=== PATIENT | male | born 1965 | race Caucasian/White ===

== ENCOUNTER 2016-12-23 07:15 | Inpatient (IN) | payer SELFPAY ==
[~2016-12-23] VITALS: Ht 188 cm; Wt 84.4 kg
--- NOTE | 2016-12-23 07:43 | PHYS DOC ---
Past Medical History Past Medical History: Other (etoh abuse, drug abuse) Adult General Chief Complaint Chief Complaint: WITHDRAWL HPI HPI Patient is a 51 year old male with history of alcohol abuse who presents with multiple complaints. Patient states he has had chest heaviness especially on the left side of his chest for 1-1/2 weeks. Patient states he has been drinking 1-1/2 pints of hard liquor for the last 1 month approximately, his last drink was 2 days ago. He states yesterday he checked himself in at [facility] for detox. He states he stood up quickly from sitting position and fell face forward and was out for a few seconds. He states this morning he woke up and he still had the chest heaviness and mild left arm pain. Patient describes left arm pain as sharp and worse on movement. Review of Systems Review of Systems Constitutional: Denies fever or chills [] Eyes: Denies change in visual acuity, redness, or eye pain [] HENT: Denies nasal congestion or sore throat [] Respiratory: Denies cough or shortness of breath [] Cardiovascular: chest heaviness and left arm pain GI: Denies abdominal pain, nausea, vomiting, bloody stools or diarrhea [] : Denies dysuria or hematuria [] Musculoskeletal: Denies back pain or joint pain [] Integument: Denies rash or skin lesions [] Neurologic: Denies headache, focal weakness or sensory changes [] Endocrine: Denies polyuria or polydipsia [] Psych:ETOH abuse Current Medications Current Medications Current Medications Medications (Trade) Dose Ordered Sig/Jimena Start Time Stop Time Status Last Admin Dose Admin Aspirin (Nakul Aspirin) 325 mg 1X ONCE 12/23/16 07:45 12/23/16 07:46 DC 12/23/16 07:52 325 MG Clonidine HCl (Catapres) 0.1 mg PRN Q1HR PRN 12/23/16 09:00 UNV Diphenhydramine HCl (Benadryl) 25 mg PRN Q15MIN PRN 12/23/16 09:00 UNV Famotidine (Pepcid) 20 mg 1X ONCE 12/23/16 07:45 12/23/16 07:46 DC 12/23/16 07:54 20 MG Lorazepam (Ativan) 2 mg PRN Q1HR PRN 12/23/16 09:00 UNV Lorazepam 2 mg 2 mg 1X ONCE 12/23/16 07:45 12/23/16 07:46 DC 12/23/16 07:52 2 MG Multivitamins/ Minerals/Folic Acid/Thiamine HCl/ Sodium Chloride (Infuvite Adult/ Iv Sodium Chloride 0.9% 1000ml Bag) 1,011.2 ml @ 1,000 mls/ hr 1X ONCE 12/23/16 08:00 12/23/16 09:00 12/23/16 07:55 1,000 MLS/HR Multivitamins/ Minerals/Thiamine HCl/Folic Acid/ Sodium Chloride (Infuvite Adult/ Iv Sodium Chloride 0.9% 1000ml Bag) 1,011.2 ml @ 100 mls/ hr DAILY 12/23/16 09:00 12/28/16 08:59 UNV Ondansetron HCl (Zofran) 4 mg 1X ONCE 12/23/16 07:45 12/23/16 07:46 DC 12/23/16 07:48 4 MG Ondansetron HCl 4 mg 4 mg PRN Q8HRS PRN 12/23/16 09:00 12/24/16 08:59 UNV Allergies Allergies Allergies Coded Allergies Type Severity Reaction Last Updated Verified Penicillins Allergy Intermediate Unknown 12/23/16 Yes Physical Exam Physical Exam Constitutional: Well developed, well nourished, no acute distress, non-toxic appearance. [] HENT: Normocephalic, atraumatic, bilateral external ears normal, oropharynx moist, no oral exudates, nose normal. [] Eyes: PERRLA, EOMI, conjunctiva normal, no discharge. [] Neck: Normal range of motion, no tenderness, supple, no stridor. [] Cardiovascular:Heart rate regular rhythm, no murmur no gallops no rubs Lungs & Thorax: Bilateral breath sounds clear to auscultation [] Abdomen: Bowel sounds normal, soft, no tenderness, no masses, no pulsatile masses. [] Skin: Warm, dry, no erythema, no rash. [] Back: No tenderness, no CVA tenderness. [] Extremities: No tenderness, no cyanosis, no clubbing, ROM intact, no edema. [] Neurologic: Alert and oriented X 3, normal motor function, normal sensory function, no focal deficits noted. [] Psychologic: Affect normal, judgement normal, mood normal. Has tremors Current Patient Data Vital Signs Vital Signs Date Time Temp Pulse Resp B/P Pulse Ox O2 Delivery O2 Flow Rate FiO2 12/23/16 07:15 98.4 67 17 162/93 98 Room Air 98.4 Lab Values Laboratory Tests Test 12/23/16 07:56 White Blood Count 5.3x10^3/uL (4.0-11.0) Red Blood Count 4.33x10^6/uL (4.30-5.70) Hemoglobin 14.6g/dL (13.0-17.5) Hematocrit 42.6% (39.0-53.0) Mean Corpuscular Volume 98fL (79-100) Mean Corpuscular Hemoglobin 34pg (25-35) Mean Corpuscular Hemoglobin Concent 34g/dL (31-37) Red Cell Distribution Width 15.2% (11.5-14.5) H Platelet Count 162x10^3/uL (140-400) Neutrophils (%) (Auto) 63% (31-73) Lymphocytes (%) (Auto) 27% (24-48) Monocytes (%) (Auto) 8% (0-9) Eosinophils (%) (Auto) 1% (0-3) Basophils (%) (Auto) 1% (0-3) Neutrophils # (Auto) 3.4x10^3uL (1.8-7.7) Lymphocytes # (Auto) 1.4x10^3/uL (1.0-4.8) Monocytes # (Auto) 0.4x10^3/uL (0.0-1.1) Eosinophils # (Auto) 0.1x10^3/uL (0.0-0.7) Basophils # (Auto) 0.0x10^3/uL (0.0-0.2) Sodium Level 140mmol/L (136-145) Potassium Level 3.6mmol/L (3.5-5.1) Chloride Level 101mmol/L (98-107) Carbon Dioxide Level 26mmol/L (21-32) Anion Gap 13 (6-14) Blood Urea Nitrogen 15mg/dL (8-26) Creatinine 0.9mg/dL (0.7-1.3) Estimated GFR (Cockcroft-Gault) 88.3 BUN/Creatinine Ratio 17 (6-20) Glucose Level 98mg/dL (70-99) Calcium Level 9.3mg/dL (8.5-10.1) Magnesium Level 1.4mg/dL (1.8-2.4) L Total Bilirubin 1.6mg/dL (0.2-1.0) H Aspartate Amino Transferase (AST) 58U/L (15-37) H Alanine Aminotransferase (ALT) 49U/L (16-63) Alkaline Phosphatase 60U/L (46-116) Creatine Kinase 252U/L (39-308) Creatine Kinase MB (Mass) 3.6ng/mL (0.0-3.6) Creatine Kinase MB Relative Index 1.4% (0-4) Troponin I Quantitative < 0.017ng/mL (0.000-0.055) JN-Zad-O-Type Natriuretic Peptide 50pg/mL (0-124) Total Protein 6.5g/dL (6.4-8.2) Albumin 3.7g/dL (3.4-5.0) Albumin/Globulin Ratio 1.3 (1.0-1.7) Lipase 154U/L (73-393) Salicylates Level < 2.8mg/dL (2.8-20.0) L Salicylate Last Dose Date Unknown Salicylate Last Dose Time Unknown Acetaminophen Level < 2.0mcg/ml (10-30) L Acetaminophen Last Dose Date Unknown Acetaminophen Last Dose Time Unknown Ethyl Alcohol Level < 10mg/dL (0-10) Laboratory Tests 12/23/16 07:56 Laboratory Tests 12/23/16 07:56 EKG EKG [] Radiology/Procedures Radiology/Procedures []PROCEDURE: PORTABLE CHEST 1V Single view chest History:Chest heaviness . An AP view of the chest is submitted. Comparison: None. Findings: There is no significant infiltrate, pleural effusion, or pneumothorax. The pericardial cardiac silhouette is within normal limits in size. The trachea is in the midline. No acute osseous abnormality is identified. Impression: There is no evidence of acute cardiopulmonary disease. DICTATED and SIGNED BY: DARIELA SANCHEZ MD DATE: 12/23/16 0749 CC: RUT FELIX [employer]; NON,STAFF ~ Course & Med Decision Making Course & Med Decision Making Pertinent Labs and Imaging studies reviewed. (See chart for details) This is a patient with history of alcohol abuse who presents today with left sided chest heaviness and pain to the left arm. He is also complaining of a syncope episode yesterday. He stopped drinking 2 days ago. Vitals on arrival temp 98.4, BP 162/93, HR 67 resp 17 O2 saturations 98% 04:[address] High sinus rate them, inverted T waves noted on EKG QRS interval 110, heart rate 77, no STEMI. Chest x-ray Interpreted by radiologist was negative for any acute findings. CT of the head interpreted by radiologist is negative for any acute findings CBC with no acute findings, CMP with AST for 58, Bilirubin 1.6, Mag 1.4, normal troponin and CKMB 08:[address] To who accepted patient for admission Consult place for cardiology Patient's nurse states they removed an armband from patient's wrist dated yesterday belonging to [facility]. Patient states he was evaluted at [facility] yesterday after falling. Dragon Disclaimer Dragon Disclaimer This electronic medical record was generated, in whole or in part, using a voice recognition dictation system. Departure Departure Impression: Primary Impression: Alcohol withdrawal Additional Impressions: ETOH abuse Acute electrocardiogram changes Syncope Chest pain of uncertain etiology Disposition: ADMITTED INPATIENT Referrals: NON,STAFF (PCP) Problem Qualifiers Primary Impression: Alcohol withdrawal Complication of substance-induced condition: uncomplicated Qualified Code: F10.230 - Alcohol dependence with withdrawal, uncomplicated Additional Impressions: Syncope Syncope type: unspecified Qualified Code: R55 - Syncope and collapse RUT FELIX APRN Dec 23, 2016 07:43
[2016-12-23] MEDS ORDERED: LORAZEPAM 2 MG/ML VIAL IV ONE (07:45)
[2016-12-23] MEDS ORDERED: FAMOTIDINE 20 MG/2 ML VIAL IVP ONE (07:45)
[2016-12-23] MEDS ORDERED: ASPIRIN 325 MG TABLET PO ONE (07:45)
[2016-12-23] MEDS ORDERED: ONDANSETRON PF 4 MG/2 ML VIAL. IV ONE (07:45)
--- NOTE | 2016-12-23 07:52 | RAD ---
Single view chest History:Chest heaviness . An AP view of the chest is submitted. Comparison: None. Findings: There is no significant infiltrate, pleural effusion, or pneumothorax. The pericardial cardiac silhouette is within normal limits in size. The trachea is in the midline. No acute osseous abnormality is identified. Impression: There is no evidence of acute cardiopulmonary disease.
[2016-12-23] MEDS ORDERED: MVI, ADULT NO.4 WITH VIT K 10 ML, FOLIC ACID 1 MG, THIAMINE 100 MG in IV NORMAL SALINE ... IV ONE ×4 (08:00)
--- NOTE | 2016-12-23 08:16 | RAD ---
Head CT without contrast History:Syncope, detox EtOH Technique: Noncontrast CT imaging was acquired of the head.[facility] Compliance Statement: One or more of the following individualized dose reduction techniques were utilized for this examination: 1. Automated exposure control 2. Adjustment of the mA and/or kV according to patient size 3. Use of iterative reconstruction technique Comparison: None Findings: The ventricles, sulci, and cisterns are within normal limits in size and configuration. There is no significant intra-axial mass-effect, midline shift, or abnormal extra-axial fluid collection. There is no evidence of acute parenchymal or extraaxial hemorrhage. The visualized paranasal sinuses and mastoid air cells are aerated. No significant osseous abnormality is identified. Impression: There is no evidence of an acute intracranial abnormality.
[2016-12-23 08:21] LABS: CALCIUM 9.3 mg/dL (8.5-10.1); CREATININE 0.9 mg/dL (0.7-1.3); GFR 88.3; POTASSIUM 3.6 mmol/L (3.5-5.1)
[2016-12-23 08:22] LABS: BASO % 1 % (0-3); EOS % 1 % (0-3); HEMATOCRIT 42.6 % (39.0-53.0); HEMOGLOBIN 14.6 g/dL (13.0-17.5); LYMPH # 1.4 x10^3/uL (1.0-4.8); LYMPH % 27 % (24-48); MEAN CORPUSCULAR HEMOGLOBIN 34 pg (25-35); MEAN CORPUSCULAR HGB CONC 34 g/dL (31-37); MEAN CORPUSCULAR VOLUME 98 fL (79-100); MONO % 8 % (0-9); NEUT % 63 % (31-73); PLATELET COUNT 162 x10^3/uL (140-400); RED BLOOD COUNT 4.33 x10^6/uL (4.30-5.70); RED CELL DISTRIBUTION WIDTH 15.2 % (11.5-14.5); WHITE BLOOD COUNT 5.3 x10^3/uL (4.0-11.0)
[2016-12-23 08:25] LABS: ETHANOL < 10 mg/dL (0-10)
[2016-12-23 08:30] LABS: ALBUMIN 3.7 g/dL (3.4-5.0); ALBUMIN/GLOBULIN RATIO 1.3 (1.0-1.7); MAGNESIUM 1.4 mg/dL (1.8-2.4); PROTHROMBIN TIME PATIENT 12.8 SEC (11.7-14.0); TOTAL BILIRUBIN 1.6 mg/dL (0.2-1.0); TOTAL PROTEIN 6.5 g/dL (6.4-8.2)
[2016-12-23 08:36] LABS: CKMB INDEX 1.4 % (0-4); CKMB MASS 3.6 ng/mL (0.0-3.6)
[2016-12-23] MEDS ORDERED: ONDANSETRON PF 4 MG/2 ML VIAL. IV PRN (09:00)
[2016-12-23] MEDS ORDERED: CLONIDINE HCL 0.1 MG TABLET PO PRN (09:00)
[2016-12-23] MEDS ORDERED: DIPHENHYDRAMINE 50 MG/ML VIAL IVP PRN (09:00)
--- NOTE | 2016-12-23 09:30 | ACF ---
Admit Criteria Forms Admit Criteria Forms Admit Criteria Forms SUBSTANCE ABUSE Clinical Indications for Admission to Inpatient Care (Place 'X' for any and all applicable criteria): Admission is indicated due to ANY ONE of the following(1)(2)(3)(4)(5): [ ]I. Delirium due to alcohol or sedative A withdrawal B ( Also use Delirium Criteria as appropriate)1,6,7 [ ]II. Alcohol or sedative withdrawal with high-risk indicator as manifested by ALL of the following1,3,6,7 [ ]a) Signs of withdrawal as indicated by ANY ONE of the following: [ ]i) Heart rate greater than 100 beats per minute [ ]ii) Nausea or vomiting [ ]iii) Other physical signs of alcohol or sedative withdrawal [ ]iv) Tremor [ ](v) Increased perspiration [ ]b) Elevated risk due to a historical or comorbid factor as indicated by ANY ONE of the following: [ ]i) History of delirium due to alcohol or sedative withdrawal [ ]ii) History of repetitive seizures due to alcohol or sedative withdrawal C [ ]iii) Intrinsic seizure disorder (epilepsy) [ ]iv) [ ]v) Comorbid medical condition that can be dangerously destabilized by alcohol or sedative withdrawal (eg, severe cardiac disease) [ ]III. Severe alcohol or sedative withdrawal that is unmanageable at lower level of care, as manifested by ALL of the following1,3,6,7 [ ]a) Marked signs of withdrawal as indicated by ANY ONE of the following: [ ]i) Heart rate greater than 120 beats per minute [ ]ii) Vomiting [ ]iii) Grossly visible tremor [ ]iv) Profuse perspiration [ ]v) Temperature greater than 38.3 degrees C (101 degrees F) [ ]vi) Other marked physical signs of alcohol or sedative withdrawal [ ]b) Signs of withdrawal which require inpatient treatment as indicated by ANY ONE of the following: [ ]i) Inadequate response to pharmacotherapy in emergency department or other appropriate lower level of care [ ]ii) Lower level of care not feasible or appropriate (eg, unavailable or inappropriate to patient condition or treatment history) [ ]IV. Severely complicated opioid withdrawal that requires [id number] care as manifested by ALL of the following 1,4,7,11 [ ]a) Vomiting or diarrhea due to opioid withdrawal [ ]b) Marked dehydration or electrolyte abnormality that cannot be corrected (to near normal) in an emergency department or other ambulatory setting (eg, serum K<2.5 mEq/L , serum Na <130 mEq/L [ ]V. Acute toxicity or instability from substance use requiring inpatient care (eg, altered mental status, respiratory depression) that has had inadequate response to, or is judged inappropriate for, treatment at lower level of care (eg, emergency department, observation care) [X]. Other inpatient medical or psychiatric care is needed due to risk or comorbidity as indicated by ALL of the following(18): [X]a) Treatment is needed because of patient risk due to ANY ONE of the following: [X]i) Medical condition (eg, severe cardiac disease) that requires 24-hour monitoring and treatment due to danger of destabilization by alcohol or sedative withdrawal is present [ ]ii) Imminent danger to self is present due to ANY ONE of the following(19)(20)(21): [ ]1) Imminent risk for recurrence of Suicide attempt or act of serious Harm to self is present as indicated by ALL of the following: [ ]A. There has been very recent Suicide attempt or deliberate act of serious Harm to self. [ ]B. There has not been Sufficient relief of the factors that precipitated the attempt or act. [ ]2) Current plan for suicide or serious Harm to self is present. [ ]3) Command auditory hallucinations for suicide or serious Harm to self are present. [ ]4) Patient has persistent Thoughts of suicide or serious Harm to self that cannot be adequately monitored at lower level of care due to ANY ONE of the following[E]: [ ]A. Insufficient behavioral care is available to meet patient needs (such as required provider or lower level facility is not available). [ ]B. Patient characteristics such as high impulsivity or unreliability are present. [ ]C. Environment does not support recovery. [ ]D. Ready access to lethal means [ ]iii) Imminent danger to others is present due to ANY ONE of the following(19)(23)(24): [ ]1) Imminent risk for recurrence of attempt to seriously Harm another is present as indicated by ALL of the following: [ ]A. There has been very recent attempt to seriously Harm another. [ ]B. There has not been Sufficient relief of factors that precipitated the attempt or act. [ ]2) Current plan for homicide or serious Harm to another is present. [ ]3) Command auditory hallucinations or paranoid delusions contributing to risk for homicide or serious Harm to another are present. [ ]4) Patient has persistent thoughts of homicide or serious Harm to another that cannot be adequately monitored at lower level of care because of ANY ONE of the following[E]: [ ]A. Insufficient behavioral care is available to meet patient needs (such as required provider or lower level facility is not available). [ ]B. High impulsivity or unreliability is present. [ ]C. Environment does not support recovery. [ ]D. Ready access to lethal means [ ]iv) Severe dysfunction in daily living related to substance use disorder as indicated by ANY ONE of the following(33): [ ]a) Extreme deterioration in social interactions (eg , threatening behaviors with little or no provocation) [ ]b) Complete withdrawal from all social interactions [ ]c) Complete neglect of self-care with associated impairment in physical status [ ]d) Extreme disruption in vegetative function (eg, life-sustaining functions such as eating) [ ]e) Complete inability to maintain any appropriate aspect of personal responsibility in any adult roles (eg, occupational, parental ) [ ]v) Other emotional, behavioral, or cognitive symptoms of sufficient severity to preclude ability to engage in recovery without 24-hour monitoring and treatment are present. [ ]vi) Patient requires monitoring due to substance use in combination with medical, psychiatric, or environmental factors that prevent adequate management at lower level of care as indicated by ALL of the following: [ ]1) Significant substance use effects, medical conditions, or psychiatric comorbidities are present as indicated by ANY ONE of the following [ ]A. Substance toxicity or withdrawal requires medical monitoring. [ ]B. Medical comorbidity requires medical monitoring for destabilization due to alcohol or sedative withdrawal. [ ]C. Emotional, behavioral, or cognitive symptoms of sufficient severity to limit or preclude ability to engage in treatment are present. [ ]2) Conditions, barriers, or environmental factors preventing treatment at lower level of care are present as indicated by ANY ONE of the following: [ ]A. Psychiatric comorbidity or opposition to treatment requires 24-hour setting to ensure adherence with medical treatment or adequate motivating interventions. [ ]B. Severe behavioral problems (eg, escalating relapse behaviors, acute psychiatric or substance use crisis, inability to recognize signs and symptoms of relapse ) require 24-hour setting for relapse prevention.[F] [ ]C. Living environment outside of 24-hour setting prevents recovery (eg, abuse, victimization, patient inability to cope). [ ]b Treatment situation and needs are appropriate for inpatient level ( instead of using lower level of care) as indicated by ANY ONE of the following( 25)(26)(27): [ ]i) Patient is unwilling to participate voluntarily and requires treatment (eg, legal commitment) in involuntary unit.(23) [ ]ii) Voluntary treatment at lower level is not feasible (eg, lower level care unavailable or inappropriate for patient condition). [ ]iii) Physical restraint, seclusion, or other involuntary control is needed (eg, actively violent patient for whom treatment in an involuntary unit is deemed necessary in accord with applicable medical and legal criteria).(23) [ ]iv) Wxvqse-uhy-zjzif medical or nursing care to address symptoms and initiate interventions is required; specific need is identified. Extended stay beyond goal length of stay may be needed for: [ ]a) Onset of delirium [ ]b) Recurrent seizures [ ]c) Persistent severe alcohol or sedative withdrawal [ ]d) Persistent dangerous behavior The original [employer] content created by [employer] has been revised. The portions of the content which have been revised are identified through the use of italic text or in bold, and [facility] [employer] has neither reviewed nor approved the modified material. All other unmodified content is copyright [employer]. Please see references footnoted in the original [employer] edition 2015 RODRIGUEZ CLARK Dec 23, 2016 09:30
--- NOTE | 2016-12-23 15:31 | CONS ---
DATE OF CONSULTATION: 12/23/2016 REASON FOR CONSULTATION: Chest pain. HISTORY OF PRESENT ILLNESS: The patient is a 51-year-old alcoholic male who presents to the hospital in the setting of a diffuse musculoskeletal pain. He is worried about withdrawl. He was recently seen apparently for a fall less than 24 hours ago at [facility]. Records from the outside hospital are not available. In speaking with the patient, he denies any anginal symptoms. He has reproducible chest pain. He denies any palpitations. Syncope yesterday may have been in the setting of alcohol abuse. PAST MEDICAL HISTORY: 1. Alcohol abuse. 2. Syncope. 3. Chest pain, likely musculoskeletal in nature. SOCIAL HISTORY: The patient denies any illicit drug use, but he is an alcoholic as noted above and drinks several alcoholic beverages a day. FAMILY HISTORY: No early atherosclerotic heart disease or sudden cardiac . ALLERGIES: TO PENICILLIN. CURRENT CARDIAC MEDICATIONS: None at home. PHYSICAL EXAMINATION: VITAL SIGNS: Afebrile, heart rate 67, blood pressure 146/82, pulse ox 98% on room air. GENERAL: He is alert and oriented, in no acute distress. HEAD AND NECK: Unremarkable. CARDIAC: Regular rate and rhythm without any murmurs, rubs or gallops. ABDOMEN: Soft, nontender, nondistended. LUNGS: Clear to auscultation bilaterally. EXTREMITIES: No clubbing, cyanosis or edema. NEUROLOGIC: No focal deficits. MUSCULOSKELETAL: Tenderness to palpation diffusely. DIAGNOSTIC STUDIES: 1. Hemoglobin, platelets and creatinine within normal limits. Initial cardiac enzymes are negative x 1. 2. EKG is unremarkable. 3. Chest x-ray and head CT are also unremarkable. IMPRESSION: Noncardiac chest pain in the setting of history of alcohol abuse. RECOMMENDATIONS: No further cardiac testing necessary at this time. Supportive care from a cardiac standpoint. Monitor for alcohol withdrawal per primary service. Please call with questions. Thank you for this consultation. BRITTANIE RODRIGUEZ MD DR: CATALINO/nessa JOB#: [id number] / [id number] SENTHIL
[2016-12-23 15:34] LABS: BILIRUBIN,URINE NEGATIVE (NEG); GLUCOSE,URINE NEGATIVE (NEG); NITRITE,URINE NEGATIVE (NEG); PROTEIN,URINE NEGATIVE (NEG-TRACE)
[2016-12-23 15:39] LABS: BARBITURATES NEG (NEG); BENZODIAZEPINES NEG (NEG); CANNABINOIDS NEG (NEG); COCAINE NEG (NEG); METHADONE NEG (NEG); OPIATES NEG (NEG); PHENCYCLIDINE NEG (NEG)
[2016-12-23 15:44] LABS: RBC,URINE 0 /HPF (0-2)
[2016-12-23 15:45] LABS: BACTERIA,URINE 0 /HPF (0-FEW)
[2016-12-23 15:51] LABS: ETHANOL, URINE NEG (NEG)
[2016-12-23 17:35] VITALS: BP_SYST 165; BP_DIAS 72; BP_DIAS 90; BP_DIAS 92
[2016-12-23] MEDS: LORAZEPAM 2 MG/ML VIAL IV PRN ×2 (18:27→19:43)
--- NOTE | 2016-12-23 18:52 | EKG ---
[facility] [address] [place] [address] Test Date: 2016-12-23 Test Time: 07:16:24 Pat Name: SHONA MARTINEZ Department: Room: 252 1 Gender: M Basketball Assembler: : 1965 Requested By: RUT FELIX Order Number: [id number] Reading MD: Lima Santillan Measurements Intervals [place] Rate: 66 P: 34 MO: 132 QRS: -39 QRSD: 94 T: 20 QT: 410 QTc: 432 Interpretive Statements SINUS RHYTHM ABNORMAL LEFT AXIS DEVIATION QRS(T) CONTOUR ABNORMALITY CONSIDER ANTEROLATERAL MYOCARDIAL DAMAGE ABNORMAL ECG RI6.01 No previous ECG available for comparison Electronically Signed On 12-24-2016 19:06:59 DETONATOR ASSEMBLER by Lima Santillan
[2016-12-23] MEDS ORDERED: no home (18:59)
[2016-12-23 19:00] VITALS: BP 151/88
[2016-12-23 23:27] VITALS: BP 133/93
[2016-12-24 03:00] VITALS: BP 149/86
--- NOTE | 2016-12-24 05:30 | HP ---
ADMIT DATE: 12/23/2016 CHIEF COMPLAINT: Alcohol withdrawal. HISTORY OF PRESENT ILLNESS: The patient is a pleasant 51-year-old male who drinks regularly. He came in complaining of alcohol withdrawal. He has got some associated chest tightness that has been occurring off and on for a couple of weeks. I discussed the case with the ER physician. We are going to admit the patient and consult Cardiology and put him on alcohol withdrawal protocol. PAST MEDICAL HISTORY: Alcoholism and drug abuse. ALLERGIES: PENICILLIN. FAMILY HISTORY: Coronary artery disease. SOCIAL HISTORY: He drinks, he smokes and uses drugs. MEDICATIONS: Reviewed, please refer to the MRAD. REVIEW OF SYSTEMS: GENERAL: No history of weight change, weakness or fevers. SKIN: No bruising, hair changes or rashes. EYES: No blurred, double or loss of vision. NOSE AND THROAT: No history of nosebleeds, hoarseness or sore throat. HEART: He complains of chest pain. LUNGS: Denies cough, hemoptysis, wheezing or shortness of breath. GASTROINTESTINAL: Denies changes in appetite, nausea, vomiting, diarrhea or constipation. GENITOURINARY: No history of frequency, urgency, hesitancy or nocturia. NEUROLOGIC: Denies history of numbness, tingling, tremor or weakness. PSYCHIATRIC: No history of panic, anxiety or depression. ENDOCRINE: No history of heat or cold intolerance, polyuria or polydipsia. EXTREMITIES: Denies muscle weakness, joint pain, pain on walking or stiffness. PHYSICAL EXAMINATION: VITAL SIGNS: Temperature afebrile, pulse 97, respirations 18, blood pressure 162/92. GENERAL: He is alert. He is sleeping. He awakens. HEART: Normal S1, S2. LUNGS: Clear. ABDOMEN: Soft, positive bowel sounds. EXTREMITIES: Trace edema. SKIN: No rashes. PSYCHIATRIC: He is depressed. VASCULAR: Good capillary extremities. PSYCHIATRIC: He is stable. VASCULAR: Good capillary refill. ENDOCRINE: No thyromegaly. LYMPHATICS: No cervical nodes. HEMATOPOIETIC: No bruising. LABORATORY DATA: CT of the head is negative. Chest x-ray negative. Hematology within normal limits. Electrolytes normal. Troponin is 0. Drug screen negative. INR 1.0. ASSESSMENT AND PLAN: Alcohol withdrawal and chest pain. The patient has been admitted. We will place him on alcohol withdrawal protocol, consult Cardiology, cardiac monitoring, serial enzymes, serial EKGs. DONNA YIP DO DR: MARISA/nessa JOB#: [id number] / [id number]
[2016-12-24 05:57] LABS: BASO % 1 % (0-3); EOS % 1 % (0-3); HEMATOCRIT 45.1 % (39.0-53.0); HEMOGLOBIN 15.1 g/dL (13.0-17.5); LYMPH # 1.2 x10^3/uL (1.0-4.8); LYMPH % 22 % (24-48); MEAN CORPUSCULAR HEMOGLOBIN 34 pg (25-35); MEAN CORPUSCULAR HGB CONC 34 g/dL (31-37); MEAN CORPUSCULAR VOLUME 100 fL (79-100); MONO % 5 % (0-9); NEUT % 70 % (31-73); PLATELET COUNT 139 x10^3/uL (140-400); RED BLOOD COUNT 4.51 x10^6/uL (4.30-5.70); RED CELL DISTRIBUTION WIDTH 15.6 % (11.5-14.5); WHITE BLOOD COUNT 5.6 x10^3/uL (4.0-11.0)
[2016-12-24 06:21] LABS: GFR 78.2; POTASSIUM 3.6 mmol/L (3.5-5.1)
[2016-12-24 07:30] VITALS: BP 139/93
[2016-12-24] MEDS: MVI, ADULT NO.4 WITH VIT K 10 ML, THIAMINE 100 MG, FOLIC ACID 1 MG in IV NORMAL SALINE ... IV SCH ×4 (09:44)
[2016-12-24] MEDS: LORAZEPAM 2 MG/ML VIAL IV PRN ×3 (09:45→20:48)
[2016-12-24 11:00] VITALS: BP 136/89
[2016-12-24 14:20] VITALS: BP 126/77
--- NOTE | 2016-12-24 15:06 | PDOC ---
PROGRESS NOTES Chief Complaint Chief Complaint Alcohol withdrawal and Chest pain.MSK plan iv Ativan Multivitamins fall precautions cbc/bmp PT/OT Vitals Vitals Vital Signs Date Time Temp Pulse Resp B/P Pulse Ox O2 Delivery O2 Flow Rate FiO2 12/24/16 14:20 98.7 64 16 126/77 93 Room Air 98.7 Physical Exam General: Alert, Oriented X3 Heart: Normal S1, Normal S2 Lungs: Clear Abdomen: Soft Extremities: No clubbing Labs LABS Laboratory Tests Test 12/23/16 15:20 12/23/16 20:00 12/24/16 05:00 Urine Collection Type Unknown Urine Color Yellow Urine Clarity Clear Urine pH 6.0 Urine Specific [place] 1.015 Urine Protein Negativemg/dL (NEG-TRACE) Urine Glucose (UA) Negativemg/dL (NEG) Urine Ketones (Stick) 40mg/dL (NEG) Urine Blood Negative (NEG) Urine Nitrite Negative (NEG) Urine Bilirubin Negative (NEG) Urine Urobilinogen Dipstick 1.0mg/dL (0.2 mg/dL) Urine Leukocyte Esterase Negative (NEG) Urine RBC 0/HPF (0-2) Urine WBC 1-4/HPF (0-4) Urine Bacteria 0/HPF (0-FEW) Urine Mucus Slight/LPF Urine Opiates Screen Neg (NEG) Urine Methadone Screen Neg (NEG) Urine Barbiturates Neg (NEG) Urine Phencyclidine Screen Neg (NEG) Urine Amphetamine/Methamphetamine Neg (NEG) Urine Benzodiazepines Screen Neg (NEG) Urine Cocaine Screen Neg (NEG) Urine Cannabinoids Screen Neg (NEG) Urine Ethyl Alcohol Neg (NEG) Troponin I Quantitative < 0.017ng/mL (0.000-0.055) White Blood Count 5.6x10^3/uL (4.0-11.0) Red Blood Count 4.51x10^6/uL (4.30-5.70) Hemoglobin 15.1g/dL (13.0-17.5) Hematocrit 45.1% (39.0-53.0) Mean Corpuscular Volume 100fL (79-100) Mean Corpuscular Hemoglobin 34pg (25-35) Mean Corpuscular Hemoglobin Concent 34g/dL (31-37) Red Cell Distribution Width 15.6% (11.5-14.5) Platelet Count 139x10^3/uL (140-400) Neutrophils (%) (Auto) 70% (31-73) Lymphocytes (%) (Auto) 22% (24-48) Monocytes (%) (Auto) 5% (0-9) Eosinophils (%) (Auto) 1% (0-3) Basophils (%) (Auto) 1% (0-3) Neutrophils # (Auto) 3.9x10^3uL (1.8-7.7) Lymphocytes # (Auto) 1.2x10^3/uL (1.0-4.8) Monocytes # (Auto) 0.3x10^3/uL (0.0-1.1) Eosinophils # (Auto) 0.1x10^3/uL (0.0-0.7) Basophils # (Auto) 0.0x10^3/uL (0.0-0.2) Sodium Level 138mmol/L (136-145) Potassium Level 3.6mmol/L (3.5-5.1) Chloride Level 101mmol/L (98-107) Carbon Dioxide Level 27mmol/L (21-32) Anion Gap 10 (6-14) Blood Urea Nitrogen 15mg/dL (8-26) Creatinine 1.0mg/dL (0.7-1.3) Estimated GFR (Cockcroft-Gault) 78.2 Glucose Level 138mg/dL (70-99) Calcium Level 9.0mg/dL (8.5-10.1) Assessment and Plan Assessmemt and Plan Problems Medical Problems: (1) Acute electrocardiogram changes Status: Acute (2) Alcohol withdrawal Status: Acute (3) Chest pain of uncertain etiology Status: Acute (4) EKG abnormality Status: Acute (5) ETOH abuse Status: Acute (6) Syncope Status: Acute Problems: Comment Review of Relevant I have reviewed the following items mally (where applicable) has been applied. Labs Laboratory Tests Test 12/23/16 07:56 12/23/16 14:48 12/23/16 15:20 12/23/16 20:00 White Blood Count 5.3x10^3/uL (4.0-11.0) Red Blood Count 4.33x10^6/uL (4.30-5.70) Hemoglobin 14.6g/dL (13.0-17.5) Hematocrit 42.6% (39.0-53.0) Mean Corpuscular Volume 98fL (79-100) Mean Corpuscular Hemoglobin 34pg (25-35) Mean Corpuscular Hemoglobin Concent 34g/dL (31-37) Red Cell Distribution Width 15.2% (11.5-14.5) Platelet Count 162x10^3/uL (140-400) Neutrophils (%) (Auto) 63% (31-73) Lymphocytes (%) (Auto) 27% (24-48) Monocytes (%) (Auto) 8% (0-9) Eosinophils (%) (Auto) 1% (0-3) Basophils (%) (Auto) 1% (0-3) Neutrophils # (Auto) 3.4x10^3uL (1.8-7.7) Lymphocytes # (Auto) 1.4x10^3/uL (1.0-4.8) Monocytes # (Auto) 0.4x10^3/uL (0.0-1.1) Eosinophils # (Auto) 0.1x10^3/uL (0.0-0.7) Basophils # (Auto) 0.0x10^3/uL (0.0-0.2) Prothrombin Time 12.8SEC (11.7-14.0) Prothromb Time International Ratio 1.0 (0.8-1.1) Sodium Level 140mmol/L (136-145) Potassium Level 3.6mmol/L (3.5-5.1) Chloride Level 101mmol/L (98-107) Carbon Dioxide Level 26mmol/L (21-32) Anion Gap 13 (6-14) Blood Urea Nitrogen 15mg/dL (8-26) Creatinine 0.9mg/dL (0.7-1.3) Estimated GFR (Cockcroft-Gault) 88.3 BUN/Creatinine Ratio 17 (6-20) Glucose Level 98mg/dL (70-99) Calcium Level 9.3mg/dL (8.5-10.1) Magnesium Level 1.4mg/dL (1.8-2.4) Total Bilirubin 1.6mg/dL (0.2-1.0) Aspartate Amino Transf (AST/SGOT) 58U/L (15-37) Alanine Aminotransferase (ALT/SGPT) 49U/L (16-63) Alkaline Phosphatase 60U/L (46-116) Creatine Kinase 252U/L (39-308) Creatine Kinase MB (Mass) 3.6ng/mL (0.0-3.6) Creatine Kinase MB Relative Index 1.4% (0-4) Troponin I Quantitative < 0.017ng/mL (0.000-0.055) < 0.017ng/mL (0.000-0.055) < 0.017ng/mL (0.000-0.055) KK-Paf-X-Type Natriuretic Peptide 50pg/mL (0-124) Total Protein 6.5g/dL (6.4-8.2) Albumin 3.7g/dL (3.4-5.0) Albumin/Globulin Ratio 1.3 (1.0-1.7) Lipase 154U/L (73-393) Salicylates Level < 2.8mg/dL (2.8-20.0) Salicylate Last Dose Date Unknown Salicylate Last Dose Time Unknown Acetaminophen Level < 2.0mcg/ml (10-30) Acetaminophen Last Dose Date Unknown Acetaminophen Last Dose Time Unknown Ethyl Alcohol Level < 10mg/dL (0-10) Urine Collection Type Unknown Urine Color Yellow Urine Clarity Clear Urine pH 6.0 Urine Specific [place] 1.015 Urine Protein Negativemg/dL (NEG-TRACE) Urine Glucose (UA) Negativemg/dL (NEG) Urine Ketones (Stick) 40mg/dL (NEG) Urine Blood Negative (NEG) Urine Nitrite Negative (NEG) Urine Bilirubin Negative (NEG) Urine Urobilinogen Dipstick 1.0mg/dL (0.2 mg/dL) Urine Leukocyte Esterase Negative (NEG) Urine RBC 0/HPF (0-2) Urine WBC 1-4/HPF (0-4) Urine Bacteria 0/HPF (0-FEW) Urine Mucus Slight/LPF Urine Opiates Screen Neg (NEG) Urine Methadone Screen Neg (NEG) Urine Barbiturates Neg (NEG) Urine Phencyclidine Screen Neg (NEG) Urine Amphetamine/Methamphetamine Neg (NEG) Urine Benzodiazepines Screen Neg (NEG) Urine Cocaine Screen Neg (NEG) Urine Cannabinoids Screen Neg (NEG) Urine Ethyl Alcohol Neg (NEG) Test 12/24/16 05:00 White Blood Count 5.6x10^3/uL (4.0-11.0) Red Blood Count 4.51x10^6/uL (4.30-5.70) Hemoglobin 15.1g/dL (13.0-17.5) Hematocrit 45.1% (39.0-53.0) Mean Corpuscular Volume 100fL (79-100) Mean Corpuscular Hemoglobin 34pg (25-35) Mean Corpuscular Hemoglobin Concent 34g/dL (31-37) Red Cell Distribution Width 15.6% (11.5-14.5) Platelet Count 139x10^3/uL (140-400) Neutrophils (%) (Auto) 70% (31-73) Lymphocytes (%) (Auto) 22% (24-48) Monocytes (%) (Auto) 5% (0-9) Eosinophils (%) (Auto) 1% (0-3) Basophils (%) (Auto) 1% (0-3) Neutrophils # (Auto) 3.9x10^3uL (1.8-7.7) Lymphocytes # (Auto) 1.2x10^3/uL (1.0-4.8) Monocytes # (Auto) 0.3x10^3/uL (0.0-1.1) Eosinophils # (Auto) 0.1x10^3/uL (0.0-0.7) Basophils # (Auto) 0.0x10^3/uL (0.0-0.2) Sodium Level 138mmol/L (136-145) Potassium Level 3.6mmol/L (3.5-5.1) Chloride Level 101mmol/L (98-107) Carbon Dioxide Level 27mmol/L (21-32) Anion Gap 10 (6-14) Blood Urea Nitrogen 15mg/dL (8-26) Creatinine 1.0mg/dL (0.7-1.3) Estimated GFR (Cockcroft-Gault) 78.2 Glucose Level 138mg/dL (70-99) Calcium Level 9.0mg/dL (8.5-10.1) Laboratory Tests Test 12/23/16 15:20 12/23/16 20:00 12/24/16 05:00 Urine Collection Type Unknown Urine Color Yellow Urine Clarity Clear Urine pH 6.0 Urine Specific [place] 1.015 Urine Protein Negativemg/dL (NEG-TRACE) Urine Glucose (UA) Negativemg/dL (NEG) Urine Ketones (Stick) 40mg/dL (NEG) Urine Blood Negative (NEG) Urine Nitrite Negative (NEG) Urine Bilirubin Negative (NEG) Urine Urobilinogen Dipstick 1.0mg/dL (0.2 mg/dL) Urine Leukocyte Esterase Negative (NEG) Urine RBC 0/HPF (0-2) Urine WBC 1-4/HPF (0-4) Urine Bacteria 0/HPF (0-FEW) Urine Mucus Slight/LPF Urine Opiates Screen Neg (NEG) Urine Methadone Screen Neg (NEG) Urine Barbiturates Neg (NEG) Urine Phencyclidine Screen Neg (NEG) Urine Amphetamine/Methamphetamine Neg (NEG) Urine Benzodiazepines Screen Neg (NEG) Urine Cocaine Screen Neg (NEG) Urine Cannabinoids Screen Neg (NEG) Urine Ethyl Alcohol Neg (NEG) Troponin I Quantitative < 0.017ng/mL (0.000-0.055) White Blood Count 5.6x10^3/uL (4.0-11.0) Red Blood Count 4.51x10^6/uL (4.30-5.70) Hemoglobin 15.1g/dL (13.0-17.5) Hematocrit 45.1% (39.0-53.0) Mean Corpuscular Volume 100fL (79-100) Mean Corpuscular Hemoglobin 34pg (25-35) Mean Corpuscular Hemoglobin Concent 34g/dL (31-37) Red Cell Distribution Width 15.6% (11.5-14.5) Platelet Count 139x10^3/uL (140-400) Neutrophils (%) (Auto) 70% (31-73) Lymphocytes (%) (Auto) 22% (24-48) Monocytes (%) (Auto) 5% (0-9) Eosinophils (%) (Auto) 1% (0-3) Basophils (%) (Auto) 1% (0-3) Neutrophils # (Auto) 3.9x10^3uL (1.8-7.7) Lymphocytes # (Auto) 1.2x10^3/uL (1.0-4.8) Monocytes # (Auto) 0.3x10^3/uL (0.0-1.1) Eosinophils # (Auto) 0.1x10^3/uL (0.0-0.7) Basophils # (Auto) 0.0x10^3/uL (0.0-0.2) Sodium Level 138mmol/L (136-145) Potassium Level 3.6mmol/L (3.5-5.1) Chloride Level 101mmol/L (98-107) Carbon Dioxide Level 27mmol/L (21-32) Anion Gap 10 (6-14) Blood Urea Nitrogen 15mg/dL (8-26) Creatinine 1.0mg/dL (0.7-1.3) Estimated GFR (Cockcroft-Gault) 78.2 Glucose Level 138mg/dL (70-99) Calcium Level 9.0mg/dL (8.5-10.1) Medications Current Medications Aspirin (Nakul Aspirin) 325 mg 1X ONCE PO Last administered on 12/23/16 07:52 ; Start 12/23/16 at 07:45; Stop 12/23/16 at 07:46; Status DC Famotidine (Pepcid) 20 mg 1X ONCE IVP Last administered on 12/23/16 07:54; Start 12/23/16 at 07:45; Stop 12/23/16 at 07:46; Status DC Ondansetron HCl (Zofran) 4 mg 1X ONCE IV Last administered on 12/23/16 07:48 ; Start 12/23/16 at 07:45; Stop 12/23/16 at 07:46; Status DC Lorazepam 2 mg 2 mg 1X ONCE IV Last administered on 12/23/16 07:52; Start 09/28 at 07:45; Stop 12/23/16 at 07:46; Status DC Multivitamins/ Minerals/Folic Acid/Thiamine HCl/ Sodium Chloride (Infuvite Adult / Iv Sodium Chloride 0.9% 1000ml Bag) 1,011.2 ml @ 1,000 mls/ hr 1X ONCE IV Last administered on 12/23/16 07:55; Start 12/23/16 at 08:00; Stop 12/23/16 at 09:00; Status DC Ondansetron HCl 4 mg 4 mg PRN Q8HRS PRN IV NAUSEA/VOMITING; Start 12/23/16 at 09:00; Stop 12/24/16 at 08:59; Status DC Multivitamins/ Minerals/Thiamine HCl/Folic Acid/ Sodium Chloride (Infuvite Adult / Iv Sodium Chloride 0.9% 1000ml Bag) 1,011.2 ml @ 100 mls/ hr DAILY IV Last administered on 12/24/16 09:44; Start 12/24/16 at 09:00; Stop 12/28/16 at 08:59 Lorazepam (Ativan) 2 mg PRN Q1HR PRN IV For CIWA 8-14 Last administered on 12/24 09:45; Start 12/23/16 at 09:00 Diphenhydramine HCl (Benadryl) 25 mg PRN Q15MIN PRN IVP EPS symptoms 2'Haldol admin; Start 12/23/16 at 09:00 Clonidine HCl (Catapres) 0.1 mg PRN Q1HR PRN PO SBP > 180 or DBP > 100, MRX3; Start 12/23/16 at 09:00 Active Scripts Active Reported [no home] Vitals/I & O Vital Sign - Last 24 Hours 12/23/16 12/23/16 12/23/16 12/23/16 15:21 17:35 17:35 19:00 Temp 98.3 98.3 98.2 98.3 98.3 98.2 Pulse 64 62 115 62 Resp 22 20 18 18 B/P 167/98 165/72 165/92 151/88 Pulse Ox 96 96 96 98 O2 Delivery Room Air Room Air Room Air Room Air 12/23/16 12/23/16 12/24/16 12/24/16 20:00 23:27 03:00 07:30 Temp 98.2 98.0 98.0 98.2 98.0 98.0 Pulse 60 60 Resp 15 16 16 B/P 133/93 149/86 139/93 Pulse Ox 98 99 96 O2 Delivery Room Air Room Air Room Air Room Air 12/24/16 12/24/16 12/24/16 08:00 11:00 14:20 Temp 97.6 98.7 97.6 98.7 Pulse 62 64 Resp 18 16 B/P 136/89 126/77 Pulse Ox 97 93 O2 Delivery Room Air Room Air Room Air Intake and Output 12/23/16 12/23/16 12/24/16 15:00 23:00 07:00 Intake Total 1011.2 ml 500 ml 200 ml Output Total 200 ml 1100 ml Balance 1011.2 ml 300 ml -900 ml WANDY CONRAD MD Dec 24, 2016 15:06
[2016-12-24 19:25] VITALS: BP 139/92
[2016-12-24 23:00] VITALS: BP 129/89
[2016-12-25] MEDS: LORAZEPAM 2 MG/ML VIAL IV PRN ×3 (00:36→17:13)
[2016-12-25 03:26] VITALS: BP 135/89
[2016-12-25 07:00] VITALS: BP 121/75
[2016-12-25] MEDS: MVI, ADULT NO.4 WITH VIT K 10 ML, THIAMINE 100 MG, FOLIC ACID 1 MG in IV NORMAL SALINE ... IV SCH ×4 (09:14)
[2016-12-25 10:21] VITALS: BP 114/84
[2016-12-25] MEDS ORDERED: LORAZEPAM 1 MG TABLET. PO PRN (11:30)
[2016-12-25 14:22] VITALS: BP 122/83
--- NOTE | 2016-12-25 14:58 | PDOC ---
PROGRESS NOTES Chief Complaint Chief Complaint Alcohol withdrawal and Chest pain.MSK plan po Ativan Multivitamins fall precautions cbc/bmp PT/OT SW consult for dc tmr likely, pt may want to go back to detox facility History of Present Illness History of Present Illness bl hands tremors, mild Vitals Vitals Vital Signs Date Time Temp Pulse Resp B/P Pulse Ox O2 Delivery O2 Flow Rate FiO2 12/25/16 14:22 98.3 57 17 122/83 98 Room Air 98.3 Physical Exam General: Alert, Oriented X3 Heart: Normal S1, Normal S2 Lungs: Clear Abdomen: Soft Extremities: No clubbing Review of Systems Review of Systems no fever, chills, sob or chest pain Assessment and Plan Assessmemt and Plan Problems Medical Problems: (1) Acute electrocardiogram changes Status: Acute (2) Alcohol withdrawal Status: Acute (3) Chest pain of uncertain etiology Status: Acute (4) EKG abnormality Status: Acute (5) ETOH abuse Status: Acute (6) Syncope Status: Acute Problems: Comment Review of Relevant I have reviewed the following items mally (where applicable) has been applied. Labs Laboratory Tests Test 12/23/16 15:20 12/23/16 20:00 12/24/16 05:00 Urine Collection Type Unknown Urine Color Yellow Urine Clarity Clear Urine pH 6.0 Urine Specific [place] 1.015 Urine Protein Negativemg/dL (NEG-TRACE) Urine Glucose (UA) Negativemg/dL (NEG) Urine Ketones (Stick) 40mg/dL (NEG) Urine Blood Negative (NEG) Urine Nitrite Negative (NEG) Urine Bilirubin Negative (NEG) Urine Urobilinogen Dipstick 1.0mg/dL (0.2 mg/dL) Urine Leukocyte Esterase Negative (NEG) Urine RBC 0/HPF (0-2) Urine WBC 1-4/HPF (0-4) Urine Bacteria 0/HPF (0-FEW) Urine Mucus Slight/LPF Urine Opiates Screen Neg (NEG) Urine Methadone Screen Neg (NEG) Urine Barbiturates Neg (NEG) Urine Phencyclidine Screen Neg (NEG) Urine Amphetamine/Methamphetamine Neg (NEG) Urine Benzodiazepines Screen Neg (NEG) Urine Cocaine Screen Neg (NEG) Urine Cannabinoids Screen Neg (NEG) Urine Ethyl Alcohol Neg (NEG) Troponin I Quantitative < 0.017ng/mL (0.000-0.055) White Blood Count 5.6x10^3/uL (4.0-11.0) Red Blood Count 4.51x10^6/uL (4.30-5.70) Hemoglobin 15.1g/dL (13.0-17.5) Hematocrit 45.1% (39.0-53.0) Mean Corpuscular Volume 100fL (79-100) Mean Corpuscular Hemoglobin 34pg (25-35) Mean Corpuscular Hemoglobin Concent 34g/dL (31-37) Red Cell Distribution Width 15.6% (11.5-14.5) Platelet Count 139x10^3/uL (140-400) Neutrophils (%) (Auto) 70% (31-73) Lymphocytes (%) (Auto) 22% (24-48) Monocytes (%) (Auto) 5% (0-9) Eosinophils (%) (Auto) 1% (0-3) Basophils (%) (Auto) 1% (0-3) Neutrophils # (Auto) 3.9x10^3uL (1.8-7.7) Lymphocytes # (Auto) 1.2x10^3/uL (1.0-4.8) Monocytes # (Auto) 0.3x10^3/uL (0.0-1.1) Eosinophils # (Auto) 0.1x10^3/uL (0.0-0.7) Basophils # (Auto) 0.0x10^3/uL (0.0-0.2) Sodium Level 138mmol/L (136-145) Potassium Level 3.6mmol/L (3.5-5.1) Chloride Level 101mmol/L (98-107) Carbon Dioxide Level 27mmol/L (21-32) Anion Gap 10 (6-14) Blood Urea Nitrogen 15mg/dL (8-26) Creatinine 1.0mg/dL (0.7-1.3) Estimated GFR (Cockcroft-Gault) 78.2 Glucose Level 138mg/dL (70-99) Calcium Level 9.0mg/dL (8.5-10.1) Medications Current Medications Aspirin (Nakul Aspirin) 325 mg 1X ONCE PO Last administered on 12/23/16t 07:52 ; Start 12/23/16 at 07:45; Stop 12/23/16 at 07:46; Status DC Famotidine (Pepcid) 20 mg 1X ONCE IVP Last administered on 12/23/16 07:54; Start 12/23/16 at 07:45; Stop 12/23/16 at 07:46; Status DC Ondansetron HCl (Zofran) 4 mg 1X ONCE IV Last administered on 12/23/16 07:48 ; Start 12/23/16 at 07:45; Stop 12/23/16 at 07:46; Status DC Lorazepam 2 mg 2 mg 1X ONCE IV Last administered on 12/23/16 07:52; Start 09/28 at 07:45; Stop 12/23/16 at 07:46; Status DC Multivitamins/ Minerals/Folic Acid/Thiamine HCl/ Sodium Chloride (Infuvite Adult / Iv Sodium Chloride 0.9% 1000ml Bag) 1,011.2 ml @ 1,000 mls/ hr 1X ONCE IV Last administered on 12/23/16 07:55; Start 12/23/16 at 08:00; Stop 12/23/16 at 09:00; Status DC Ondansetron HCl 4 mg 4 mg PRN Q8HRS PRN IV NAUSEA/VOMITING; Start 12/23/16 at 09:00; Stop 12/24/16 at 08:59; Status DC Multivitamins/ Minerals/Thiamine HCl/Folic Acid/ Sodium Chloride (Infuvite Adult / Iv Sodium Chloride 0.9% 1000ml Bag) 1,011.2 ml @ 100 mls/ hr DAILY IV Last administered on 12/25/16 09:14; Start 12/24/16 at 09:00; Stop 12/28/16 at 08:59 Lorazepam (Ativan) 2 mg PRN Q1HR PRN IV For CIWA 8-14 Last administered on 12/25 09:18; Start 12/23/16 at 09:00 Diphenhydramine HCl (Benadryl) 25 mg PRN Q15MIN PRN IVP EPS symptoms 2'Haldol admin; Start 12/23/16 at 09:00 Clonidine HCl (Catapres) 0.1 mg PRN Q1HR PRN PO SBP > 180 or DBP > 100, MRX3; Start 12/23/16 at 09:00 Lorazepam (Ativan) 1 mg PRN Q6HRS PRN PO ANXIETY / AGITATION; Start 12/25/16 at 11:30 Active Scripts Active Reported [no home] Vitals/I & O Vital Sign - Last 24 Hours 12/24/16 12/24/16 12/24/16 12/25/16 19:25 20:06 23:00 03:26 Temp 98.8 98.0 98.1 98.8 98.0 98.1 Pulse 77 68 69 Resp 22 B/P 139/92 129/89 135/89 Pulse Ox 97 96 98 O2 Delivery Room Air Room Air Room Air Room Air 12/25/16 12/25/16 12/25/16 12/25/16 07:00 08:00 10:21 14:22 Temp 98.0 98.0 98.3 98.0 98.0 98.3 Pulse 60 65 57 Resp 17 B/P 121/75 114/84 122/83 Pulse Ox 96 94 98 O2 Delivery Room Air Room Air Room Air Room Air Intake and Output 12/24/16 12/24/16 12/25/16 15:00 23:00 07:00 Intake Total 500 ml 1139 ml Output Total 700 ml 600 ml Balance -200 ml 539 ml CIARA HAMEED MD Dec 25, 2016 14:58
[2016-12-25] MEDS ORDERED: ONDANSETRON PF 4 MG/2 ML VIAL. IV PRN (15:00)
[2016-12-25] MEDS ORDERED: ACETAMINOPHEN 325 MG TABLET. PO PRN (15:00)
[2016-12-25] MEDS: ENOXAPARIN 40 MG/0.4 ML DISP.SYRIN. SQ SCH ×2 (16:00→17:09)
[2016-12-25] MEDS: FOLIC ACID 1 MG TABLET PO SCH (17:08)
[2016-12-25] MEDS: THIAMINE 100 MG TABLET. PO SCH (17:08)
[2016-12-25 19:22] VITALS: BP 138/97
[2016-12-25] MEDS: NICOTINE 21MG PATCH. TD SCH (19:54)
[2016-12-25 23:03] VITALS: BP 143/72
[2016-12-26] MEDS: LORAZEPAM 2 MG/ML VIAL IV PRN ×2 (00:13→04:33)
[2016-12-26 03:25] VITALS: BP 119/74
[2016-12-26 06:19] LABS: BASO % 1 % (0-3); EOS % 2 % (0-3); HEMATOCRIT 45.3 % (39.0-53.0); HEMOGLOBIN 15.2 g/dL (13.0-17.5); LYMPH # 1.9 x10^3/uL (1.0-4.8); LYMPH % 35 % (24-48); MEAN CORPUSCULAR HEMOGLOBIN 33 pg (25-35); MEAN CORPUSCULAR HGB CONC 34 g/dL (31-37); MEAN CORPUSCULAR VOLUME 99 fL (79-100); MONO % 9 % (0-9); NEUT % 54 % (31-73); PLATELET COUNT 143 x10^3/uL (140-400); RED BLOOD COUNT 4.58 x10^6/uL (4.30-5.70); RED CELL DISTRIBUTION WIDTH 15.6 % (11.5-14.5); WHITE BLOOD COUNT 5.5 x10^3/uL (4.0-11.0)
[2016-12-26 06:26] LABS: CALCIUM 9.3 mg/dL (8.5-10.1); CREATININE 0.7 mg/dL (0.7-1.3); POTASSIUM 3.4 mmol/L (3.5-5.1)
[2016-12-26 07:00] VITALS: BP 131/91
[2016-12-26] MEDS: FOLIC ACID 1 MG TABLET PO SCH ×2 (09:02→09:04)
[2016-12-26] MEDS: NICOTINE 21MG PATCH. TD SCH ×2 (09:02→09:04)
[2016-12-26] MEDS: THIAMINE 100 MG TABLET. PO SCH (09:04)
[2016-12-26] MEDS: MVI, ADULT NO.4 WITH VIT K 10 ML, THIAMINE 100 MG, FOLIC ACID 1 MG in IV NORMAL SALINE ... IV SCH ×4 (09:08)
[2016-12-26] MEDS ORDERED: POTASSIUM CHLORIDE 20 MEQ TABLET.ER. PO ONE (11:00)
--- NOTE | 2016-12-26 13:28 | PDOC3 ---
Discharge Summary [facility] Date of Admission: Dec 23, 2016 Discharge Date: Dec 26, 2016 Admitting Diagnosis Alcohol withdrawal and Chest pain.MSK Problems: Final Diagnosis Problems Medical Problems: (1) Acute electrocardiogram changes Status: Acute (2) Alcohol withdrawal Status: Acute (3) Chest pain of uncertain etiology Status: Acute (4) EKG abnormality Status: Acute (5) ETOH abuse Status: Acute (6) Syncope Status: Acute Brief Hospital Course Mr. Jaime is a 51 old M, comes for syncope with alcohol withdrawl, fell in the detox facility. with chest pain. feels good now. dc back to [facility]. dc time 25min General: Alert, Oriented X3 Heart: Normal S1, Normal S2 Lungs: Clear Abdomen: Soft Extremities: No clubbing Problems: Disposition home CONDITION AT DISCHARGE: Improved Diet regular No Active Prescriptions or Reported Meds CIARA HAMEED MD Dec 26, 2016 13:28
== END 2016-12-26 11:00 | disposition home or self-care (01) | DRG 896 ==
LOC: ER 07:15 → ED HOLD 08:56 → 2 SOUTH 17:15
PROVIDERS: ADMIT Internal Medicine; ATTEND Internal Medicine
DX: F10.239 Alcohol dependence with withdrawal, unspecified (principal); G92 Toxic encephalopathy; R07.89 Other chest pain; F17.210 Nicotine dependence, cigarettes, uncomplicated; R94.31 Abnormal electrocardiogram [ECG] [EKG]; M79.1 Myalgia; Z82.49 Family history of ischemic heart disease and other diseases of the circulatory system; Z88.0 Allergy status to penicillin; Z79.899 Other long term (current) drug therapy
CPT/HCPCS: 36415; 70450; 71010; 80048; 80053; 81001; 82553; 83690; 83735; 83880; 84484; 85027; 85610; 93005; 96365; 96375; G0480; G0481; G6038; J1650; J2060; J2405; J7030; S0028; 80196; 99285-25